=== PATIENT | female | born 1990 | race Caucasian/White ===

== ENCOUNTER 2020-07-07 23:20 | Inpatient (IN) | payer BC ==
[2020-07-07] MEDS ORDERED: Oxytocin/0.9 % Sodium Chloride 30 UNIT/500 ML BAG IV SCH (23:45)
[2020-07-07] MEDS ORDERED: Sodium Chloride 0.9% 10 ML SDV IV PRN (23:46)
[2020-07-07] MEDS ORDERED: Sodium Chloride 0.9% 10 ML Syringe FLUSH PRN (23:46)
[2020-07-07] MEDS ORDERED: Citric Acid/Sodium Citrate Solution 30 ML Cup PO ONE (23:46)
[2020-07-07] MEDS ORDERED: ceFAZolin 2 GM in Premix Bag 1 BAG IV ONE (23:46)
[2020-07-07] MEDS ORDERED: Sodium Chloride 0.9% 2.5 ML Syringe FLUSH PRN (23:46)
[2020-07-08] MEDS: Lactated Ringers 1,000 ML IV SCH ×3 (01:48→03:10)
--- NOTE | 2020-07-08 02:25 | US ---
INDICATION: Contractions. Check position and weight. TECHNIQUE: Limited transabdominal two-dimensional grayscale ultrasound examination. COMPARISON: None FINDINGS: There is a living fetus in breech lie with gestational age of 37 weeks 4 days by LMP and 38 weeks 5 days by today`s measurements. EDC based on LMP is 07/25/2020 BPD: 8.8 cm, 35 weeks 5 days Head circumference: 33.6 cm, 38 weeks 4 days Abdominal circumference: 35.0 cm, 30 a week`s Femur length: 8.1 cm, 41 weeks 2 days The weight is estimated at 3633 grams, the 89th percentile. The heart rate is measured at 121 beats per minute and the rhythm appears regular. The amniotic fluid volume is within normal limits with LIAN of 13 cm. The placenta is posterior. IMPRESSION: 1. Living fetus in breech lie with gestational age of 37 weeks 4 days by LMP and 38 weeks 5 days by today`s measurements. EDC based on LMP is 07/25/2020. 2. weight estimated at 3633 grams, the 89th percentile. 3. LIAN within normal limits at 13 cm. Dictated by Doug Lara MD @ Jul 08 2020 2:17AM Signed by Dr. Doug Lara @ Jul 08 2020 2:23AM
[2020-07-08] MEDS ORDERED: Morphine PF 10 MG/10 ML SDV ONE (02:54)
[2020-07-08] MEDS ORDERED: Ketorolac 30 MG/ML SDV ONE (02:54)
[2020-07-08] MEDS ORDERED: Oxytocin 10 Units/1 ML SDV ONE (02:54)
[2020-07-08] MEDS ORDERED: Ondansetron 4 MG/2 ML SDV ONE (02:54)
[2020-07-08] MEDS ORDERED: Phenylephrine 1% 10 MG/ML SDV ONE (02:54)
[2020-07-08] MEDS ORDERED: ceFAZolin 1 GM Vial ONE (02:58)
--- NOTE | 2020-07-08 03:10 | PCM.LDHP ---
L&D History of Present Illness - General Date of Service: 07/08/20 Admit Problem/Dx: Patient Status Order with Admit Dx/Problem 07/07/20 23:46 Patient Status [ADT] Routine Admission Diagnosis/Problem Admission Diagnosis/Problem Source of Information: Patient History Limitations: Reports: No Limitations - History of Present Illness Introduction:: Patient presents with contractions this evening--they are becoming more intense every 1-3 minutes. She denies leakage of fluid or vaginal bleeding. She has been breech presentation in clinic. - Related Data Allergies/Adverse Reactions: Allergies Allergy/AdvReac Type Severity Reaction Status Date / Time No Known Allergies Allergy Unverified 07/08/20 00:34 Past Medical History [employer]IAN History: Reports: - Infectious Disease History Infectious Disease History: Reports: Chicken Pox - Past Surgical History HEENT Surgical History: Reports: Tonsillectomy Other Oncologic Surgeries/Procedures: melanoma cancer on her back Social & Family History - Family History Family Medical History: No Pertinent Family History H&P Review of Systems - Review of Systems: Review Of Systems: Comprehensive ROS is negative, except as noted in HPI. L&D Exam - Exam Exam: See Below - Vital Signs Weight: 91.172 kg - OB Specific Contraction Intensity: Moderate to Strong Movement: Active Heart Tones: Present Heart Tones per Min: 120 Heart Rate (FHR) Variability: Moderate (6-25 bmp) Presentation: Breech - Britton Score Britton Score Cervix Position: Midposition Britton Score Consistency: Soft Britton Score Effacement: >80% Britton Score Dilation: 3-4 cm Britton Score Infant's Station: -3 Britton Score Total: 8 - Exam General: Alert, Oriented Lungs: Normal Respiratory Effort Cardiovascular: Regular Rate, Regular Rhythm GI/Abdominal Exam: Normal Bowel Sounds, Soft Extremities: Pedal Edema (trace). No: Jf's Sign Skin: Warm, Dry, Intact Psychiatric: Alert, Normal Affect, Normal Mood - Patient Data Lab Results Last 24 hrs: Laboratory Results - last 24 hr 07/08/20 07/08/20 07/08/20 Range/Units 00:02 00:08 00:30 WBC 15.57 H (4.0-11.0) K/uL RBC 3.98 L (4.30-5.90) M/uL Hgb 12.4 (12.0-16.0) g/dL Hct 36.7 (36.0-46.0) % MCV 92.2 (80.0-98.0) fL MCH 31.2 (27.0-32.0) pg MCHC 33.8 (31.0-37.0) g/dL RDW Std Deviation 45.3 (28.0-62.0) fl RDW Coeff of Ashley 14 (11.0-15.0) % Plt Count 209 (150-400) K/uL MPV 10.50 (7.40-12.00) fL Nucleated RBC % 0.0 /100WBC Nucleated RBCs # 0 K/uL SARS-CoV-2 RNA (ISAC) NEGATIVE (NEGATIVE) Blood Type A POSITIVE Antibody Screen NEGATIVE Result Diagrams: 07/08/20 00:30 - Problem List (1) Breech presentation of fetus SNOMED Code(s): 8945012 ICD Code: O32.1XX0 - MATERNAL CARE FOR BREECH PRESENTATION, UNSP Status: Acute Current Visit: Yes Problem List Initiated/Reviewed/Updated: Yes Orders Last 24hrs: Active Orders 24 hr Category Date Time Status Patient Status [ADT] Routine ADT 07/07/20 23:46 Active Non Stress Test [RC] PER UNIT ROUTINE Care 07/07/20 23:46 Active Notify Provider Vital Signs [RC] PRN Care 07/07/20 23:48 Active Procedure Site Prep Instruct [RC] ASDIRECTED Care 07/07/20 23:46 Active Up ad Ana Luisa [RC] ASDIRECTED Care 07/07/20 23:46 Active Verify Patient Consent Obtain [RC] ASDIRECTED Care 07/07/20 23:46 Active Vital Signs [RC] PER UNIT ROUTINE Care 07/07/20 23:46 Active RPR (SYPHILIS SERO) W/ RFLX [REF] Routine Lab 07/07/20 23:46 Received Lactated Ringers [Ringers, Lactated] 1,000 ml Med 07/07/20 23:45 Active IV BOLUS Oxytocin/0.9 % Sodium Chloride [Oxytocin 30 Unit/500 ML Med 07/07/20 23:45 Active -NS] 30 unit in 500 ml IV TITRATE Sodium Chloride 0.9% [Normal Saline] Med 07/07/20 23:46 Active 10 ml IV ASDIRECTED PRN Sodium Chloride 0.9% [Saline Flush] Med 07/07/20 23:46 Active 10 ml FLUSH ASDIRECTED PRN Sodium Chloride 0.9% [Saline Flush] Med 07/07/20 23:46 Active 2.5 ml FLUSH ASDIRECTED PRN Peripheral IV Insertion Adult [OM.PC] Routine Oth 07/07/20 23:46 Ordered Schedule Procedure [COMM] Per Unit Routine Oth 07/07/20 23:46 Ordered Resuscitation Status Routine Resus Stat 07/07/20 23:46 Ordered Medication Orders Oxytocin/Sodium Chloride (Oxytocin 30 Unit/500 Ml-Ns) 30 unit in 500 mls @ 250 mls/hr IV TITRATE DEEPTI Lactated Ringer's (Ringers, Lactated) 1,000 mls @ 500 mls/hr IV BOLUS DEEPTI Last Admin: 07/08/20 02:11 Dose: 999 mls/hr Documented by: Infusion: 07/08/20 02:11 Dose: 999 mls/hr Documented by: Admin: 07/08/20 01:48 Dose: 999 mls/hr Documented by: MIRANDA Sodium Chloride (Sodium Chloride 0.9% 10 Ml Syringe) 10 ml FLUSH ASDIRECTED PRN PRN Reason: Keep Vein Open Sodium Chloride (Sodium Chloride 0.9% 2.5 Ml Syringe) 2.5 ml FLUSH ASDIRECTED PRN PRN Reason: Keep Vein Open Sodium Chloride (Sodium Chloride 0.9% 10 Ml Sdv) 10 ml IV ASDIRECTED PRN PRN Reason: IV Use Assessment/Plan Comment:: 37/4 week IUP Early labor Breech presentation--confirmed with sonogram GBBS negative Given labor and breech presentation, advise proceeding with c section. Risks of procedure discussed including infection, bleeding, possible trauma to surrounding bowel/bladder/ureter. In case of excessive blood loss, need for blood product transfustion. In rare, life saving circumstances, need for hystere ctomy. Risk of anesthesia and thromboembolic event discussed. Patient agrees to plan of care, proper consents obtained.
--- NOTE | 2020-07-08 03:15 | PCM.PREANE ---
Preanesthetic Assessment - Anesthesia/Transfusion/Family Hx Family History of Anesthesia Reaction: No - Review of Systems General: No Symptoms Pulmonary: No Symptoms Cardiovascular: No Symptoms Gastrointestinal: No Symptoms Neurological: No Symptoms - Physical Assessment NPO Status Date: 07/07/20 NPO Status Time: 17:00 Height: 1.65 m Weight: 91.172 kg ASA Class: 2E - Lab Values: Laboratory Last Values WBC 15.57 K/uL (4.0-11.0) H 07/08/20 00:30 RBC 3.98 M/uL (4.30-5.90) L 07/08/20 00:30 Hgb 12.4 g/dL (12.0-16.0) 07/08/20 00:30 Hct 36.7 % (36.0-46.0) 07/08/20 00:30 MCV 92.2 fL (80.0-98.0) 07/08/20 00:30 MCH 31.2 pg (27.0-32.0) 07/08/20 00:30 MCHC 33.8 g/dL (31.0-37.0) 07/08/20 00:30 RDW Std Deviation 45.3 fl (28.0-62.0) 07/08/20 00:30 RDW Coeff of Ashley 14 % (11.0-15.0) 07/08/20 00:30 Plt Count 209 K/uL (150-400) 07/08/20 00:30 MPV 10.50 fL (7.40-12.00) 07/08/20 00:30 Nucleated RBC % 0.0 /100WBC 07/08/20 00:30 Nucleated RBCs # 0 K/uL 07/08/20 00:30 SARS-CoV-2 RNA (ISAC) NEGATIVE (NEGATIVE) 07/08/20 00:02 Blood Type A POSITIVE 07/08/20 00:08 Antibody Screen NEGATIVE 07/08/20 00:08 - Allergies Allergies/Adverse Reactions: Allergies Allergy/AdvReac Type Severity Reaction Status Date / Time No Known Allergies Allergy Unverified 07/08/20 00:34 - Acknowledgements Anesthesia Type Planned: Spinal Alternatives and Risks of Anesthesia Discussed w Pt/Guardian: Yes Pt/Guardian Understands and Agrees with Anesthesia Plan: Yes PreAnesthesia Questionnaire PHYSICIANS AND SURGEONS History: Reports: - Infectious Disease History Infectious Disease History: Reports: Chicken Pox - Past Surgical History HEENT Surgical History: Reports: Tonsillectomy Other Oncologic Surgeries/Procedures: melanoma cancer on her back - CURRENT (IN HOUSE) MEDS Current Meds: Current Medications Oxytocin/Sodium Chloride (Oxytocin 30 Unit/500 Ml-Ns) 30 unit in 500 mls @ 250 mls/hr IV TITRATE DEEPTI Lactated Ringer's (Ringers, Lactated) 1,000 mls @ 500 mls/hr IV BOLUS DEEPTI Last Admin: 07/08/20 03:10 Dose: 500 mls/hr Documented by: Sodium Chloride (Sodium Chloride 0.9% 10 Ml Syringe) 10 ml FLUSH ASDIRECTED PRN PRN Reason: Keep Vein Open Sodium Chloride (Sodium Chloride 0.9% 2.5 Ml Syringe) 2.5 ml FLUSH ASDIRECTED PRN PRN Reason: Keep Vein Open Sodium Chloride (Sodium Chloride 0.9% 10 Ml Sdv) 10 ml IV ASDIRECTED PRN PRN Reason: IV Use Discontinued Medications Cefazolin Sodium (Cefazolin 1 Gm Vial) Confirm Administered Dose 2 gm .ROUTE .STK-MED ONE Stop: 07/08/20 02:59 Citric Acid/Sodium Citrate (Citric Acid/Sodium Citrate Solution 30 Ml Cup) 30 ml PO ONETIME ONE Stop: 07/07/20 23:47 Cefazolin Sodium/Dextrose 2 gm (/ Premix) 50 mls @ 100 mls/hr IV ONETIME ONE Stop: 07/08/20 00:15 Ketorolac Tromethamine (Ketorolac 30 Mg/Ml Sdv) Confirm Administered Dose 30 mg .ROUTE .STK-MED ONE Stop: 07/08/20 02:55 Morphine Sulfate (Morphine Pf 10 Mg/10 Ml Sdv) Confirm Administered Dose 10 mg .ROUTE .STK-MED ONE Stop: 07/08/20 02:55 Ondansetron HCl (Ondansetron 4 Mg/2 Ml Sdv) Confirm Administered Dose 4 mg .ROUTE .STK-MED ONE Stop: 07/08/20 02:55 Oxytocin (Oxytocin 10 Units/1 Ml Sdv) Confirm Administered Dose 20 unit .ROUTE .STK-MED ONE Stop: 07/08/20 02:55 Phenylephrine HCl (Phenylephrine 1% 10 Mg/Ml Sdv) Confirm Administered Dose 10 mg .ROUTE .STK-MED ONE Stop: 07/08/20 02:55
[2020-07-08] MEDS ORDERED: Lidocaine 2% with EPINEPHrine 1:200,000 20 ML SDV ONE (03:38)
[2020-07-08] MEDS ORDERED: fentaNYL 100 MCG/2 ML SDV ONE (03:45)
[2020-07-08] MEDS ORDERED: Propofol 200 MG/20 ML SDV ONE (04:00)
[2020-07-08] MEDS ORDERED: fentaNYL 250 MCG/5 ML SDV ONE ×2 (04:03→04:15)
[2020-07-08] MEDS ORDERED: Midazolam 1 MG/ML 2 ML SDV ONE ×2 (04:12→04:13)
[2020-07-08] MEDS ORDERED: Famotidine 20 MG/2 ML SDV ONE (04:26)
[2020-07-08] MEDS ORDERED: diphenhydrAMINE 50 MG/ML SDV IVPUSH PRN (04:47)
[2020-07-08] MEDS ORDERED: Oxytocin 10 Units/1 ML SDV IM PRN (04:47)
[2020-07-08] MEDS ORDERED: Ibuprofen 800 MG Tab PO PRN (04:47)
[2020-07-08] MEDS ORDERED: Acetaminophen/oxyCODONE 325-5 MG Tab PO PRN (04:47)
[2020-07-08] MEDS ORDERED: Methylergonovine 0.2 MG/1 ML Amp IM PRN (04:47)
[2020-07-08] MEDS ORDERED: Lanolin 100% Cream 7 GM Tube TOP PRN (04:47)
[2020-07-08] MEDS ORDERED: Tranexamic Acid 1,000 MG in Sodium Chloride 0.9% 100 ML IV PRN (04:47)
[2020-07-08] MEDS ORDERED: Bisacodyl 10 MG Supp RECTAL PRN (04:47)
[2020-07-08] MEDS ORDERED: Ondansetron 4 MG/2 ML SDV IVPUSH PRN (04:47)
--- NOTE | 2020-07-08 04:59 | PCM.OPNOTE ---
- General Post-Op/Procedure Note Date of Surgery/Procedure: 07/08/20 Operative Procedure(s): Primary LTCS Findings: Viable female APGARs 8, 9 weight 7 lb 3 oz. Clear amniotic fluid. No uterine anomalies identified Pre Op Diagnosis: 37/4 week IUP. Labor. Breech presentation Post-Op Diagnosis: Same Anesthesia Technique: Epidural, General ET Tube Primary Surgeon: Kelli Wallace Fluid Replacement, Intraop: 1,400 EBL in mLs: 600 Complications: none known Condition: Good Free Text/Narrative:: Dictation [id number]
[2020-07-08] MEDS ORDERED: Lactated Ringers 1,000 ML IV SCH (05:00)
[2020-07-08] MEDS ORDERED: Morphine 10 MG/ML Syringe IVPUSH PRN (05:02)
--- NOTE | 2020-07-08 06:21 | OR ---
SURGEON: Kelli Wallace M.D. DATE OF PROCEDURE: 07/08/2020 PREOPERATIVE DIAGNOSES: 1. 37 and 4 weeks intrauterine . 2. Active labor. 3. Breech presentation. POSTOPERATIVE DIAGNOSES: 1. 37 and 4 weeks intrauterine . 2. Active labor. 3. Breech presentation. PROCEDURE: Primary low-transverse section. PRIMARY SURGEON: Kelli Wallace MD. ANESTHESIA: Epidural converted to general anesthesia. ESTIMATED BLOOD LOSS: 600 mL. FLUIDS: 1400 mL of crystalloid in the OR. FINDINGS: Viable female, score 8 at one minute and 9 at five minutes. Weight 7 pounds 3 ounces. Clear amniotic fluid, intact placenta, 3-vessel cord. No uterine anomalies identified. DISPOSITION: Infant to nursery, mom to PACU in stable condition. PROCEDURE DETAILS: Liz is a 30-year-old G1, P0 at 37 and 4 weeks gestational age, who presented on the graduate internship of 07/08/2020 with regular contractions. On initial examination, she was found to be 3 cm, 80% effaced, -3 station. She had been breech presentation, still palpable to be breech presentation. Sonogram was performed to confirm this. Estimated weight was approximately 8 pounds. The patient is jone every 1 to 3 minutes. With observation, she did change her cervix to 4 cm dilatation. The patient was advised that given that she is in labor and with breech presentation, it would be best to proceed with a delivery. Risks of procedure were discussed with her including infection; bleeding; possible trauma to the surrounding bowel, bladder, ureters; in case of excessive blood loss, need for blood product transfusion; in rare lifesaving circumstances need for hysterectomy; risk for thromboembolic event; risk of anesthesia also discussed. Proper consent was obtained. The patient was taken to operating room where she underwent attempt at spinal anesthesia. This was not placed successfully. At that point, we did reevaluate the patient and remained approximately 4 to 5 cm dilated. The buttocks were now within the pelvis. No evidence of cord. heart tones in 120s. Therefore, we proceeded with attempt at epidural. This was placed. The patient was placed in dorsal supine position with leftward tilt. SCDs to the lower extremities. Davis to gravity. Was prepped and draped in the usual sterile fashion. After waiting over 25 minutes, anesthesia was instilled, not felt to be adequate. The patient was able to feel the attempts at testing the skin. Therefore, at this point, we elected to proceed with general anesthesia. The patient underwent general endotracheal anesthesia. A Pfannenstiel skin incision was created, carried down to the level of rectus fascia, which was lateralized on either side sharply and bluntly. The superior aspect of the fascia was tented upwards, dissected sharply and bluntly away from underlying muscles. In similar fashion, this was performed on the inferior aspect of the fascia. Rectus muscle was in the midline. Peritoneum was entered. Peritoneum and rectus muscles were now lateralized bluntly. Uterine position and position palpated. Self-retaining retractor was gently placed. A low- transverse hysterotomy was now performed. Uterine cavity was entered with blunt- ended scalpel. Hysterotomy was lateralized bluntly. The infant's buttocks were brought to the midline and delivered followed by left lower extremity, right lower extremity, trunk, right upper extremity, left upper extremity. The head was flexed and delivered. The infant's oropharynx and nares were bulb suctioned. The cord was clamped x2 and cut. Infant was handed off to attending large animal veterinarian and nursery staff. Cord arterial, cord venous, cord blood sampling obtained. The placenta was now delivered. Uterine cavity was cleared of all clot and debris. No uterine anomalies were noted. Hysterotomy was repaired using 0 Vicryl in continuous running locked fashion followed by re-imbricating layer. Posterior aspect of the uterus was inspected. No defects or hematomas were found to be forming. Region was well irrigated and suction dried. Colonic gutters were cleared of all clot and debris, well irrigated and suction dried. Hysterotomy was inspected and found to be hemostatic. Self-retaining retractor now gently removed. Bladder blade was placed. Hysterotomy was again inspected, found to be hemostatic. Rectus muscle and peritoneum were now reapproximated using 0 Vicryl with inverted mattress suture technique. Anterior aspect of the muscle, posterior aspect of the fascia closely inspected. Any areas of oozing were cauterized. Fascial edges were reapproximated using 0 Vicryl in continuous running fashion beginning laterally on either side and meeting in the midline. Subcutaneous tissues were irrigated and suction dried. Any areas of oozing were cauterized. The skin edges were reapproximated using 3-0 Vicryl on a Stalin needle in subcuticular fashion followed by 0.5 inch Steri-Strips and Mastisol. Sponge, instrument, and needle counts were correct x2. The patient tolerated the procedure well overall. Her fundus remains firm at this time. QUINCY / ALESSANDRA /[id number]
[2020-07-08] MEDS: Docusate Sodium 100 MG Cap PO SCH ×2 (10:16→21:17)
[2020-07-08] MEDS: Ketorolac 30 MG/ML SDV IVPUSH SCH ×3 (10:16→21:13)
[2020-07-08] MEDS: Simethicone 80 MG Tab.Chew PO SCH ×3 (11:47→23:51)
--- NOTE | 2020-07-08 12:48 | PCM.SN.2 ---
- Free Text/Narrative Note: Patient's pain is controlled with duarmorph. Denies nausea. She still has some numbness to right lower extremity and her right hand. VS are stable. Continue postoperative cares.
[2020-07-09] MEDS: Simethicone 80 MG Tab.Chew PO SCH ×3 (02:12→16:03)
[2020-07-09] MEDS: Ketorolac 30 MG/ML SDV IVPUSH SCH (03:13)
--- NOTE | 2020-07-09 06:25 | PCM48HPAN ---
Post Anesthesia Note - EVALUATION WITHIN 48HRS OF ANESTHETIC Vital Signs in Normal Range: Yes Patient Participated in Evaluation: Yes Respiratory Function Stable: Yes Airway Patent: Yes Cardiovascular Function Stable: Yes Hydration Status Stable: Yes Pain Control Satisfactory: Yes Nausea and Vomiting Control Satisfactory: Yes Mental Status Recovered: Yes Vital Signs: Last Vital Signs Temp 35.8 C L 07/09/20 04:18 Pulse 72 07/09/20 04:18 Resp 16 07/09/20 04:18 BP 125/74 07/09/20 04:18 Pulse Ox 97 07/09/20 04:18
--- NOTE | 2020-07-09 08:30 | PCM.PNPP ---
- General Info Date of Service: 07/09/20 Admission Dx/Problem (Free Text): Patient Status Order with Admit Dx/Problem 07/07/20 23:46 Patient Status [ADT] Routine Admission Diagnosis/Problem Admission Diagnosis/Problem Subjective Update: Patient resting comfortably in bed during rounds. Pain control improving. Davis catheter was removed this morning, has not voided independently. Lochia decreasing. Tolerating regular diet. Bottle feeding baby. Reports infant has a dislocated hip and they are awaiting further evaluation from orthopedist. - General Info Date of Service: 07/09/20 - Patient Data Vital Signs - Most Recent: Last Vital Signs Temp 96.9 F 07/09/20 08:03 Pulse 67 07/09/20 08:03 Resp 16 07/09/20 08:03 BP 115/76 07/09/20 08:03 Pulse Ox 99 07/09/20 08:03 Weight - Most Recent: 201 lb I&O - Last 24 Hours: Intake & Output 07/08/20 07/09/20 07/09/20 22:59 06:59 14:59 Output Total 1450 Balance -1450 Lab Results - Last 24 Hours: Laboratory Results - last 24 hr 07/09/20 Range/Units 05:23 Hgb 8.4 L (12.0-16.0) g/dL Hct 25.4 L (36.0-46.0) % Med Orders - Current: Current Medications Bisacodyl (Bisacodyl 10 Mg Supp) 10 mg RECTAL ONETIME PRN PRN Reason: Constipation Diphenhydramine HCl (Diphenhydramine 50 Mg/Ml Sdv) 25 mg IVPUSH Q6H PRN PRN Reason: Itching or Nausea Docusate Sodium (Docusate Sodium 100 Mg Cap) 100 mg PO BID DEEPTI Last Admin: 07/08/20 21:17 Dose: 100 mg Documented by: Emollient Ointment (Lanolin 100% Cream 7 Gm Tube) 0 gm TOP ASDIRECTED PRN PRN Reason: Sore Nipples Oxytocin/Sodium Chloride (Oxytocin 30 Unit/500 Ml-Ns) 30 unit in 500 mls @ 250 mls/hr IV TITRATE DEEPTI Lactated Ringer's (Ringers, Lactated) 1,000 mls @ 125 mls/hr IV ASDIRECTED DEEPTI Last Admin: 07/08/20 06:18 Dose: 125 mls/hr Documented by: Tranexamic Acid 1,000 mg/ (Sodium Chloride) 110 mls @ 660 mls/hr IV ONETIME PRN PRN Reason: Bleeding Ibuprofen (Ibuprofen 800 Mg Tab) 800 mg PO Q8H PRN PRN Reason: mild pain or fever Methylergonovine Maleate (Methylergonovine 0.2 Mg/1 Ml Amp) 0.2 mg IM ONETIME PRN PRN Reason: Excessive Vaginal Bleeding Ondansetron HCl (Ondansetron 4 Mg/2 Ml Sdv) 4 mg IVPUSH Q4H PRN PRN Reason: Nausea/Vomiting Oxycodone/Acetaminophen (Acetaminophen/Oxycodone 325-5 Mg Tab) 1 tab PO Q4H PRN PRN Reason: Pain (moderate 4-6) Oxycodone/Acetaminophen (Acetaminophen/Oxycodone 325-5 Mg Tab) 2 tab PO Q4H PRN PRN Reason: Pain (moderate 4-6) Oxytocin (Oxytocin 10 Units/1 Ml Sdv) 10 unit IM ASDIRECTED PRN PRN Reason: Excessive Vaginal Bleeding Simethicone (Simethicone 80 Mg Tab.Chew) 160 mg PO QID DEEPTI Last Admin: 07/09/20 08:09 Dose: 160 mg Documented by: Sodium Chloride (Sodium Chloride 0.9% 10 Ml Syringe) 10 ml FLUSH ASDIRECTED PRN PRN Reason: Keep Vein Open Sodium Chloride (Sodium Chloride 0.9% 2.5 Ml Syringe) 2.5 ml FLUSH ASDIRECTED PRN PRN Reason: Keep Vein Open Sodium Chloride (Sodium Chloride 0.9% 10 Ml Sdv) 10 ml IV ASDIRECTED PRN PRN Reason: IV Use Discontinued Medications Cefazolin Sodium (Cefazolin 1 Gm Vial) Confirm Administered Dose 2 gm .ROUTE .STK-MED ONE Stop: 07/08/20 02:59 Citric Acid/Sodium Citrate (Citric Acid/Sodium Citrate Solution 30 Ml Cup) 30 ml PO ONETIME ONE Stop: 07/07/20 23:47 Last Admin: 07/08/20 23:50 Dose: Not Given Documented by: Famotidine (Famotidine 20 Mg/2 Ml Sdv) Confirm Administered Dose 40 mg .ROUTE .STK-MED ONE Stop: 07/08/20 04:27 Last Admin: 07/08/20 23:50 Dose: Not Given Documented by: Fentanyl (Fentanyl 100 Mcg/2 Ml Sdv) Confirm Administered Dose 100 mcg .ROUTE .STK-MED ONE Stop: 07/08/20 03:46 Fentanyl (Fentanyl 250 Mcg/5 Ml Sdv) Confirm Administered Dose 250 mcg .ROUTE .STK-MED ONE Stop: 07/08/20 04:04 Fentanyl (Fentanyl 250 Mcg/5 Ml Sdv) Confirm Administered Dose 250 mcg .ROUTE .STK-MED ONE Stop: 07/08/20 04:16 Cefazolin Sodium/Dextrose 2 gm (/ Premix) 50 mls @ 100 mls/hr IV ONETIME ONE Stop: 07/08/20 00:15 Last Admin: 07/08/20 23:50 Dose: Not Given Documented by: Lactated Ringer's (Ringers, Lactated) 1,000 mls @ 500 mls/hr IV BOLUS DEEPTI Last Admin: 07/08/20 03:10 Dose: 500 mls/hr Documented by: Ketorolac Tromethamine (Ketorolac 30 Mg/Ml Sdv) Confirm Administered Dose 30 mg .ROUTE .STK-MED ONE Stop: 07/08/20 02:55 Ketorolac Tromethamine (Ketorolac 30 Mg/Ml Sdv) 30 mg IVPUSH Q6H [facility] Stop: 07/09/20 03:01 Last Admin: 07/09/20 03:13 Dose: 30 mg Documented by: Lidocaine/Epinephrine (Lidocaine 2% With Epinephrine 1:200,000 20 Ml Sdv) Confirm Administered Dose 20 ml .ROUTE .STK-MED ONE Stop: 07/08/20 03:39 Midazolam HCl (Midazolam 1 Mg/Ml 2 Ml Sdv) Confirm Administered Dose 2 mg .ROUTE .STK-MED ONE Stop: 07/08/20 04:13 Midazolam HCl (Midazolam 1 Mg/Ml 2 Ml Sdv) Confirm Administered Dose 2 mg .ROUTE .STK-MED ONE Stop: 07/08/20 04:14 Morphine Sulfate (Morphine Pf 10 Mg/10 Ml Sdv) Confirm Administered Dose 10 mg .ROUTE .STK-MED ONE Stop: 07/08/20 02:55 Morphine Sulfate (Morphine 10 Mg/Ml Syringe) 1 - 2 mg IVPUSH .Q30MIN PRN PRN Reason: Pain Stop: 07/08/20 16:00 Ondansetron HCl (Ondansetron 4 Mg/2 Ml Sdv) Confirm Administered Dose 4 mg .ROUTE .STK-MED ONE Stop: 07/08/20 02:55 Oxytocin (Oxytocin 10 Units/1 Ml Sdv) Confirm Administered Dose 20 unit .ROUTE .STK-MED ONE Stop: 07/08/20 02:55 Phenylephrine HCl (Phenylephrine 1% 10 Mg/Ml Sdv) Confirm Administered Dose 10 mg .ROUTE .STK-MED ONE Stop: 07/08/20 02:55 Propofol (Propofol 200 Mg/20 Ml Sdv) Confirm Administered Dose 200 mg .ROUTE .STK-MED ONE Stop: 07/08/20 04:01 - Infant Interaction Disposition, : [place] to Nursery Infant Feeding: Bottle Fed Support Person: Significant Other - Recovery Exam Fundal Tone: Firm Fundal Level: 1 Fingerbreadths Below Umbilicus Fundal Placement: Midline Lochia Amount: Scant Lochia Color: Rubra/Red Perineum Description: Intact, Minimal Bruising/Swelling Episiotomy/Laceration: Approximated Bladder Status: Voiding Urinary Elimination: Voided - Exam General: Alert Lungs: Normal Respiratory Effort Cardiovascular: Regular Rate GI/Abdominal Exam: Soft, No Distention, Tender (appropriate for ) Extremities: Normal Range of Motion, Non-Tender, Pedal Edema (1+) Wound/Incisions: Dressing Dry and Intact Neurological: No New Focal Deficit Psy/Mental Status: Normal Mood - Problem List Review Problem List Initiated/Reviewed/Updated: Yes - Assessment Assessment:: 30 year old G1 now P1 POD 1 s/p PLTCS due to breech presentation - Plan Plan:: Routing cares * Rh positive, rubella immune, GBS negative * PO pain medications ordered * Encourage ambulation and fluid intake today * Regular diet as tolerated * Plans to take her infant to Dr. Park at [facility] for pediatric care * Bottle feeding Dispo: stable. Anticipate discharge POD 2 or 3 pending maternal/ status. Continue cares today.
[2020-07-09] MEDS: Docusate Sodium 100 MG Cap PO SCH ×2 (09:18→20:41)
[2020-07-09] MEDS: Ibuprofen 800 MG Tab PO PRN ×2 (09:18→17:36)
[2020-07-09] MEDS: Acetaminophen/oxyCODONE 325-5 MG Tab PO PRN ×3 (11:21→20:41)
[2020-07-09] MEDS ORDERED: Iron Sucrose Complex 500 MG in Sodium Chloride 0.9% 250 ML IV SCH (14:00)
[2020-07-10] MEDS: Acetaminophen/oxyCODONE 325-5 MG Tab PO PRN ×2 (01:29→10:38)
[2020-07-10] MEDS: Ibuprofen 800 MG Tab PO PRN ×2 (01:29→14:44)
--- NOTE | 2020-07-10 08:59 | PCM.PNPP ---
- General Info Date of Service: 07/10/20 Admission Dx/Problem (Free Text): Patient Status Order with Admit Dx/Problem 07/07/20 23:46 Patient Status [ADT] Routine Admission Diagnosis/Problem Admission Diagnosis/Problem Subjective Update: Patient resting comfortably in bed during rounds. Pain well controlled. Ambulating and voiding without difficulty. Lochia decreasing. Tolerating regular diet. Baby transferred to [place], [place], due to apneic episode yesterday and hip dysplasia. Plans to bottle feed. - General Info Date of Service: 07/10/20 - Patient Data Vital Signs - Most Recent: Last Vital Signs Temp 97.4 F 07/10/20 08:31 Pulse 88 07/10/20 08:31 Resp 16 07/10/20 08:31 BP 113/78 07/10/20 08:31 Pulse Ox 100 07/10/20 08:31 Weight - Most Recent: 201 lb Lab Results - Last 24 Hours: Laboratory Results - last 24 hr 07/10/20 Range/Units 08:18 WBC 10.83 (4.0-11.0) K/uL RBC 3.19 L (4.30-5.90) M/uL Hgb 9.9 L (12.0-16.0) g/dL Hct 30.4 L (36.0-46.0) % MCV 95.3 (80.0-98.0) fL MCH 31.0 (27.0-32.0) pg MCHC 32.6 (31.0-37.0) g/dL RDW Std Deviation 48.4 (28.0-62.0) fl RDW Coeff of Ashley 14 (11.0-15.0) % Plt Count 211 (150-400) K/uL MPV 9.80 (7.40-12.00) fL Nucleated RBC % 0.0 /100WBC Nucleated RBCs # 0 K/uL Med Orders - Current: Current Medications Bisacodyl (Bisacodyl 10 Mg Supp) 10 mg RECTAL ONETIME PRN PRN Reason: Constipation Diphenhydramine HCl (Diphenhydramine 50 Mg/Ml Sdv) 25 mg IVPUSH Q6H PRN PRN Reason: Itching or Nausea Docusate Sodium (Docusate Sodium 100 Mg Cap) 100 mg PO BID DEEPTI Last Admin: 07/09/20 20:41 Dose: 100 mg Documented by: Emollient Ointment (Lanolin 100% Cream 7 Gm Tube) 0 gm TOP ASDIRECTED PRN PRN Reason: Sore Nipples Oxytocin/Sodium Chloride (Oxytocin 30 Unit/500 Ml-Ns) 30 unit in 500 mls @ 250 mls/hr IV TITRATE [facility] Lactated Ringer's (Ringers, Lactated) 1,000 mls @ 125 mls/hr IV ASDIRECTED [facility] Last Admin: 07/08/20 06:18 Dose: 125 mls/hr Documented by: Tranexamic Acid 1,000 mg/ (Sodium Chloride) 110 mls @ 660 mls/hr IV ONETIME PRN PRN Reason: Bleeding Iron Sucrose 500 mg/ Sodium (Chloride) 275 mls @ 62.5 mls/hr IV ONETIME [facility] Last Admin: 07/09/20 15:45 Dose: 62.5 mls/hr Documented by: Ibuprofen (Ibuprofen 800 Mg Tab) 800 mg PO Q8H PRN PRN Reason: mild pain or fever Last Admin: 07/10/20 01:29 Dose: 800 mg Documented by: Methylergonovine Maleate (Methylergonovine 0.2 Mg/1 Ml Amp) 0.2 mg IM ONETIME PRN PRN Reason: Excessive Vaginal Bleeding Ondansetron HCl (Ondansetron 4 Mg/2 Ml Sdv) 4 mg IVPUSH Q4H PRN PRN Reason: Nausea/Vomiting Oxycodone/Acetaminophen (Acetaminophen/Oxycodone 325-5 Mg Tab) 1 tab PO Q4H PRN PRN Reason: Pain (moderate 4-6) Oxycodone/Acetaminophen (Acetaminophen/Oxycodone 325-5 Mg Tab) 2 tab PO Q4H PRN PRN Reason: Pain (moderate 4-6) Last Admin: 07/10/20 01:29 Dose: 2 tab Documented by: Oxytocin (Oxytocin 10 Units/1 Ml Sdv) 10 unit IM ASDIRECTED PRN PRN Reason: Excessive Vaginal Bleeding Simethicone (Simethicone 80 Mg Tab.Chew) 160 mg PO QID [facility] Last Admin: 07/09/20 16:03 Dose: 160 mg Documented by: Sodium Chloride (Sodium Chloride 0.9% 10 Ml Syringe) 10 ml FLUSH ASDIRECTED PRN PRN Reason: Keep Vein Open Sodium Chloride (Sodium Chloride 0.9% 2.5 Ml Syringe) 2.5 ml FLUSH ASDIRECTED PRN PRN Reason: Keep Vein Open Sodium Chloride (Sodium Chloride 0.9% 10 Ml Sdv) 10 ml IV ASDIRECTED PRN PRN Reason: IV Use Discontinued Medications Cefazolin Sodium (Cefazolin 1 Gm Vial) Confirm Administered Dose 2 gm .ROUTE .STK-MED ONE Stop: 07/08/20 02:59 Citric Acid/Sodium Citrate (Citric Acid/Sodium Citrate Solution 30 Ml Cup) 30 ml PO ONETIME ONE Stop: 07/07/20 23:47 Last Admin: 07/08/20 23:50 Dose: Not Given Documented by: Famotidine (Famotidine 20 Mg/2 Ml Sdv) Confirm Administered Dose 40 mg .ROUTE .STK-MED ONE Stop: 07/08/20 04:27 Last Admin: 07/08/20 23:50 Dose: Not Given Documented by: Fentanyl (Fentanyl 100 Mcg/2 Ml Sdv) Confirm Administered Dose 100 mcg .ROUTE .STK-MED ONE Stop: 07/08/20 03:46 Fentanyl (Fentanyl 250 Mcg/5 Ml Sdv) Confirm Administered Dose 250 mcg .ROUTE .STK-MED ONE Stop: 07/08/20 04:04 Fentanyl (Fentanyl 250 Mcg/5 Ml Sdv) Confirm Administered Dose 250 mcg .ROUTE .STK-MED ONE Stop: 07/08/20 04:16 Cefazolin Sodium/Dextrose 2 gm (/ Premix) 50 mls @ 100 mls/hr IV ONETIME ONE Stop: 07/08/20 00:15 Last Admin: 07/08/20 23:50 Dose: Not Given Documented by: Lactated Ringer's (Ringers, Lactated) 1,000 mls @ 500 mls/hr IV BOLUS DEEPTI Last Admin: 07/08/20 03:10 Dose: 500 mls/hr Documented by: Ketorolac Tromethamine (Ketorolac 30 Mg/Ml Sdv) Confirm Administered Dose 30 mg .ROUTE .STK-MED ONE Stop: 07/08/20 02:55 Ketorolac Tromethamine (Ketorolac 30 Mg/Ml Sdv) 30 mg IVPUSH Q6H DEEPTI Stop: 07/09/20 03:01 Last Admin: 07/09/20 03:13 Dose: 30 mg Documented by: Lidocaine/Epinephrine (Lidocaine 2% With Epinephrine 1:200,000 20 Ml Sdv) Confirm Administered Dose 20 ml .ROUTE .STK-MED ONE Stop: 07/08/20 03:39 Midazolam HCl (Midazolam 1 Mg/Ml 2 Ml Sdv) Confirm Administered Dose 2 mg .ROUTE .STK-MED ONE Stop: 07/08/20 04:13 Midazolam HCl (Midazolam 1 Mg/Ml 2 Ml Sdv) Confirm Administered Dose 2 mg .ROUTE .STK-MED ONE Stop: 07/08/20 04:14 Morphine Sulfate (Morphine Pf 10 Mg/10 Ml Sdv) Confirm Administered Dose 10 mg .ROUTE .STK-MED ONE Stop: 07/08/20 02:55 Morphine Sulfate (Morphine 10 Mg/Ml Syringe) 1 - 2 mg IVPUSH .Q30MIN PRN PRN Reason: Pain Stop: 07/08/20 16:00 Ondansetron HCl (Ondansetron 4 Mg/2 Ml Sdv) Confirm Administered Dose 4 mg .ROUTE .STK-MED ONE Stop: 07/08/20 02:55 Oxytocin (Oxytocin 10 Units/1 Ml Sdv) Confirm Administered Dose 20 unit .ROUTE .STK-MED ONE Stop: 07/08/20 02:55 Phenylephrine HCl (Phenylephrine 1% 10 Mg/Ml Sdv) Confirm Administered Dose 10 mg .ROUTE .STK-MED ONE Stop: 07/08/20 02:55 Propofol (Propofol 200 Mg/20 Ml Sdv) Confirm Administered Dose 200 mg .ROUTE .STK-MED ONE Stop: 07/08/20 04:01 - Interaction Disposition, : Transferre Interaction: Not Applicable Infant Feeding: Bottle Fed Infant Support Person: Significant Other - Recovery Exam Fundal Tone: Firm Fundal Level: 1 Fingerbreadths Below Umbilicus Fundal Placement: Midline Lochia Amount: Scant Lochia Color: Rubra/Red Perineum Description: Intact, Minimal Bruising/Swelling Episiotomy/Laceration: Approximated Bladder Status: Voiding Urinary Elimination: Voided - Exam General: Alert Lungs: Normal Respiratory Effort Cardiovascular: Regular Rate GI/Abdominal Exam: Soft, Non-Tender Extremities: Normal Range of Motion, Non-Tender, No Pedal Edema (1+) Skin: Warm, Dry, Intact Wound/Incisions: Healing Well Neurological: No New Focal Deficit Psy/Mental Status: Normal Mood - Problem List Review Problem List Initiated/Reviewed/Updated: Yes - My Orders Last 24 Hours: My Active Orders 07/09/20 14:00 Iron Sucrose Complex [Venofer] 500 mg Sodium Chloride 0.9% [Normal Saline] 250 ml IV ONETIME - Assessment Assessment:: 30 year old G1 now P1 POD 2 s/p PLTCS due to breech presentation - Plan Plan:: Routing cares * Rh positive, rubella immune, GBS negative * PO pain medications ordered * Encourage ambulation and fluid intake today * Regular diet as tolerated * Plans to take her infant to Dr. Park at [facility] for pediatric care * Bottle feeding * Desires Mirena IUD for contraception Anemia * Hgb 12.4 > 8.4 following delivery, Hgb 9.9 this AM * Asymptomatic today * Received IV iron yesterday, will receive 2nd dose today Dispo: stable. Anticipate discharge today pending maternal status. Discharge precautions reviewed including fever/chills, intractable nausea/vomiting, pain not controlled by PO medications, heavy vaginal bleeding with soaking two pads an hour for more than one hour.
[2020-07-10] MEDS ORDERED: Iron Sucrose Complex 500 MG in Sodium Chloride 0.9% 250 ML IV ONE (09:47)
[2020-07-10] MEDS: Docusate Sodium 100 MG Cap PO SCH (10:53)
== END 2020-07-10 15:45 | disposition home or self-care (01) | DRG 540 ==
LOC: MW.OBCHECK 23:20 → MW.OB 23:20 → MW.OBCHECK 23:46 → MW.OB 07-08 15:05
PROVIDERS: ADMIT Obstetrics & Gynecology; ATTEND Obstetrics & Gynecology
PROC: 10D00Z1 Extraction of Products of Conception, Low, Open Approach (ICD-10-PCS; principal; 2020-07-07)
DX: O32.1XX0 Maternal care for breech presentation, not applicable or unspecified (principal); Z3A.37 37 weeks gestation of pregnancy; Z37.0 Single live birth; Z20.822 Contact with and (suspected) exposure to COVID-19
CPT/HCPCS: 01961; 36415; 59025; 76815; 76815-26; 82803; 85014; 85018; 85027; 86592; 86850; 86900; 86901; A9270-GY; J0690; J1756; J1885; J2250; J2270; J2370; J2405; J2590; J2704; J3010; J3490; J7050; J7120; U0002

== ENCOUNTER 2024-01-12 09:52 | Day surgery (SDC) | payer BC ==
[~2024-01-12 09:52] MED LIST: Sodium Chloride 0.9% 10 ML Syringe FLUSH PRN; Sodium Chloride 0.9% 2.5 ML Syringe FLUSH PRN; Sodium Chloride 0.9% 20 ML SDV IV PRN
[2024-01-12] MEDS: Lactated Ringers 1,000 ML IV SCH (10:56)
[2024-01-12] MEDS ORDERED: Lidocaine 2% 5 ML SDV ONE (11:07)
[2024-01-12] MEDS ORDERED: Propofol 200 MG/20 ML SDV ONE (11:07)
== END 2024-01-12 12:55 | disposition home or self-care (01) ==
LOC: MW.SDS 09:52
PROVIDERS: ATTEND Surgery
DX: K59.09 Other constipation (principal); K92.1 Melena; F17.210 Nicotine dependence, cigarettes, uncomplicated
CPT/HCPCS: 45380; 81025; J2704; J7120; 00811; J3490